=== PATIENT | female | born 2005 | race Hispanic/Latino ===

== ENCOUNTER 2024-12-04 22:52 | Emergency (ER) | payer BC, MEDICAID ==
[~2024-12-04] VITALS: Ht 167.6 cm; Wt 62.8 kg
[2024-12-04 22:54] VITALS: BP 131/86; PULSE 98; RESP 20; TEMP 98
--- NOTE | 2024-12-04 22:55 | NUR ---
UA CUP PROVIDED
[2024-12-04 23:21] LABS: APPEARANCE,URINE CLEAR (CLEAR); GLUCOSE, URINE (UA) NEGATIVE (NEGATIVE); LEUKOCYTE ESTERASE ,URINE 250 Leu/uL (NEGATIVE); NITRATE,URINE NEGATIVE (NEGATIVE); OCCULT BLOOD,URINE NEGATIVE (NEGATIVE)
[2024-12-04 23:22] LABS: ADD UA MICROSCOPIC YES
[2024-12-04 23:23] LABS: SQUAMOUS EPITHELIAL CELL,UR FEW /HPF (0-2)
[2024-12-04 23:27] LABS: HCG,QUALITATIVE URINE NEGATIVE (NEGATIVE)
[2024-12-05] MEDS ORDERED: NITR100C4 PO (00:03)
--- NOTE | 2024-12-05 00:06 | ERN ---
ED Note History of Present Illness Stated Complaint: PELIVC PAIN Chief Complaint: Pelvic Pain Time Seen by MD: 22:59 Time Seen by Midlevel: 22:59 Dictation: The patient is a 19-year-old female with a past medical history who presents to the emergency department with complaints of suprapubic abdominal pain onset two weeks ago. Patient reports she was seen at another hospital where they did an ultrasound and told her that everything was normal. Patient was told that she needed to follow up with her OBGYN. Patient reports that she scheduled an appointment but it is not until next month and was concerned that it will take too long. Patient denies any fevers, denies nausea or vomiting diarrhea or constipation. Patient denies any vaginal bleeding or discharge. Denies any vaginal wounds. Allergies: Coded Allergies: No Known Allergies (Unverified Allergy, Unknown, 12/04/24) Past Medical History Past Medical History: No Pertinent History Surgical History: None LMP: Nov 24, 2024 RN Note Reviewed/Agreed w/PFSH: Yes Review of System Dictation Constitutional: Negative for fever,chills, and weight loss Eyes: Negative for injury, pain,redness, and discharge ENT: Negative for injury,pain or swelling Cardiovascular: Negative for chest pain, palpitations, and edema Respiratory: Negative for shortness of breath, cough, and wheezing, Abdomen/GI: Negative for nausea, vomiting, diarrhea, and constipation positive for suprapubic abdominal pain Back: Negative for injury and pain : Negative for injury, bleeding and discharge MS/Extremity: Negative for injury and deformity Skin: Negative for rash, and discoloration Neuro: Negative for headache, weakness, numbness, tingling, and seizure Psych: Negative for suicide ideation, homicidal ideation, and hallucinations Initial Vital Sign VS Vital Signs Date Time Temp Pulse Resp B/P (MAP) Pulse Ox O2 Delivery O2 Flow Rate FiO2 12/04/24 22:54 98.1 98 20 131/86 98 Room Air Physical Exam Dictation Vital Signs reviewed General Appearance: Alert, oriented x 3, no acute distress, well developed, nourished. Head and Face: non-traumatic. Eyes: PERRL, pink conjunctivas, eyelid no trauma, anterior chamber with arcus senilis. Ears: Pinnas intact and no signs of trauma or erythema ear canals clear and no discharge TM no erythema Nose: No discharge, no bleeding. Oropharynx: Mouth normal, tongue pink. pharynx clear,no erythema, tonsils no exudates, no abscesses noted, mucous membrane moist Neck: Supple, non-tender, no thyromegaly, no masses, no JVD, no bruits Breast:Deferred Chest:No tenderness, no crepitus, no paradoxical movement, no retractions Lungs:Clear, well-ventilated, symmetric, no rales, no wheezing, no rhonchi, no stridor, good breath sounds bilaterally Heart: Regular rate, regular rhythm, no murmur, no gallops Vascular: no peripheral edema, Abdomen: Soft, positive bowel sounds, nondistended, no guarding, nontender, no rebound, no masses no hepatomegaly, no splenomegaly, no Bajwa's sign, no hernias. Rectal: Deferred Genital: Deferred Neurological: Normal speech, motor function intact, sensory function intact Musculoskeletal: Neck nontender, full range of motion, back nontender, full range of motion, Extremities: nontender, full range of motion Skin: Color pink, dry, no turgor, no rash, no lacerations, no abrasions, no contusions. Lymphatic: Deferred Results (Laboratory/Radiology) Laboratory/Radiology Laboratory Tests Test 12/04/24 23:13 Urine Color COLORLESS (YELLOW) Urine Appearance CLEAR (CLEAR) Urine pH 5.5 (5.0-8.0) Urine Specific [place] 1.009 (1.001-1.031) Urine Protein NEGATIVE mg/dL (NEGATIVE) Urine Glucose (UA) NEGATIVE mg/dL (NEGATIVE) Urine Ketones NEGATIVE mg/dL (NEGATIVE) Urine Occult Blood NEGATIVE (NEGATIVE) Urine Nitrate NEGATIVE (NEGATIVE) Urine Bilirubin NEGATIVE mg/dL (NEGATIVE) Urine Urobilinogen 0.2 mg/dL (0.2-1.0) Urine Leukocyte Esterase 250 Sweetie/uL (NEGATIVE) H Urine RBC 2-5 /HPF (0-1) H Urine WBC 11-25 /HPF (0-1) H Urine Squamous Epithelial Cells FEW /HPF (0-2) Urine Bacteria RARE /HPF (None Seen) Urine HCG, Qualitative NEGATIVE (NEGATIVE) Labs Reviewed?: Yes ED Course ED Course Orders Procedure Category Date Status Time Urinalysis Profile LAB 12/04/24 Complete 23:03 ,Urine Test LAB 12/04/24 Complete 23:03 Culture Urine NISHI 12/04/24 In Process 23:22 Ceftriaxone 1g Vial PHA 12/05/24 Complete (Rocephine 1g Inj) 00:00 Ketorolac 60mg/2ml PHA 12/05/24 Complete (Toradol 60mg/2ml) 00:00 Current Medications Medications (Trade) Dose Ordered Sig/Sonia Route PRN Reason Start Time Stop Time Status Last Admin Dose Admin Ceftriaxone Sodium (ROCEphine 1G INJ) 1 gm ONCE ONCE IM 12/05/24 00:00 12/05/24 00:01 DC Ketorolac Tromethamine (toRADol 60MG/ 2ML) 60 mg ONCE ONCE IM 12/05/24 00:00 12/05/24 00:01 DC Vital Signs Date Time Temp Pulse Resp B/P (MAP) Pulse Ox O2 Delivery O2 Flow Rate FiO2 12/04/24 22:54 98.1 98 20 131/86 98 Room Air Medical Decision Making MDM The patient is a 19-year-old female with a past medical history who presents to the emergency department with complaints of suprapubic abdominal pain onset two weeks ago. Patient reports she was seen at another hospital where they did an ultrasound and told her that everything was normal. Patient was told that she needed to follow up with her OBGYN. Patient reports that she scheduled an appointment but it is not until next month and was concerned that it will take too long. Patient denies any fevers, denies nausea or vomiting diarrhea or constipation. Patient denies any vaginal bleeding or discharge. Denies any vaginal wounds. Urinalysis revealed positive leukocyte esterase. Negative test. I advised patient we could repeat the ultrasound at this time patient reports that she would rather have it done at her OBGYN. Patient already had one done and was unremarkable at a different hospital. On physical exam patient is in no acute distress, nontender abdomen to palpation. Patient instructed to follow up with primary doctor. Patient's symptoms could be related to the UTI. Differential diagnosis: UTI, , dysuria Need for hospitalization: Patient does not meet criteria for hospitalization. There are no social concerns with this patient. DX & DISP Disposition: Discharge Departure Impression: Primary Impression: UTI (urinary tract infection) Condition: Stable Scripts Nitrofurantoin Monohyd/M-Cryst (Macrobid 100 mg Capsule) 100 Mg Capsule 1 CAP PO BID for 5 Days, #10 CAP 0 Refills Prov: KATINA RAY 12/05/24 Additional Instructions: Please follow up with your OBGYN. Take your antibiotics as prescribed and until finished. If symptoms worsen please return to ER. FOLLOW-UP WITH PRIMARY CARE PROVIDER IN 1 TO 2 DAYS. TAKE MEDICATIONS DIRECTED HERE IN THE EMERGENCY ROOM. OKAY TO CONTINUE HOME MEDICATIONS UNLESS OTHERWISE DISCUSSED DURING YOUR VISIT IN THE EMERGENCY ROOM TODAY. RETURN TO YOUR NEAREST EMERGENCY ROOM IF SYMPTOMS WORSEN OR IF THERE IS NO IMPROVEMENT. CALL 911 IF YOU NEED IMMEDIATE ASSISTANCE. TAKE TYLENOL [id number] NEEDED AND IF NO CONTRAINDICATIONS ARE PRESENT. INCREASE ORAL HYDRATION. A WOUND CULTURE OR URINE CULTURE WAS ORDERED HERE IN THE EMERGENCY ROOM DEPARTMENT PLEASE FOLLOW-UP WITH PRIMARY CARE PROVIDER AND ADVISE THEM TO GET REPEAT PORTS FROM OUR FACILITY. IF YOU HAD ANY VINICIO WRAP/SPLINTS THAT WERE APPLIED HERE, PLEASE DO NOT REMOVE THEM UNTIL YOU SEE YOUR PRIMARY CARE OR SPECIALTY. Referrals: SELF,REFERRAL (PCP) Time of Disposition: 00:03 I have reviewed the case, and I agree with, Diagnosis and Plan KATINA RAY Dec 05, 2024 00:06
== END 2024-12-05 00:26 | disposition home or self-care (01) ==
LOC: EDH 22:52
DX: N39.0 Urinary tract infection, site not specified (principal)
CPT/HCPCS: 99284; 87086; 81001; 81025; 96372 ×2; J1885; J0696